=== PATIENT | female | born 1995 | race Two or more races ===

== ENCOUNTER 2019-01-19 13:50 | Inpatient (IN) | payer OTHER ==
[~2019-01-19] VITALS: Ht 170.2 cm; Wt 79.8 kg
[2019-02-17] MEDS ORDERED: PRENATAL 19 TA1 EAC1 PO (09:40)
[2019-02-19] MEDS ORDERED: Dermoplast SPRAY TOP (15:21)
[2019-02-19] MEDS ORDERED: PRENATAL 19 TA1 EAC1 PO (15:21)
[2019-02-19] MEDS ORDERED: HYDROCORTISO453.6 G1 RECTAL (15:21)
[2019-02-19] MEDS ORDERED: OXYC1TAB9 PO (15:21)
[2019-02-19] MEDS ORDERED: ACETAMINOPHEN325 M1 PO (15:21)
== END 2019-02-19 15:41 | disposition home or self-care (01) | DRG 807 ==
LOC: OB/GYN 01-25 14:30 → LDR 02-17 05:38 → OB/GYN 02-17 05:38
PROVIDERS: ADMIT Specialist
PROC: 10E0XZZ Delivery of Products of Conception, External Approach (ICD-10-PCS; principal; 2019-02-17)
PROC: 0HQ9XZZ Repair Perineum Skin, External Approach (ICD-10-PCS; 2019-02-17)
PROC: 3E033VJ Introduction of Other Hormone into Peripheral Vein, Percutaneous Approach (ICD-10-PCS; 2019-02-17)
PROC: 10907ZC Drainage of Amniotic Fluid, Therapeutic from Products of Conception, Via Natural or Artificial Opening (ICD-10-PCS; 2019-02-17)
PROC: 4A1HXCZ Monitoring of Products of Conception, Cardiac Rate, External Approach (ICD-10-PCS; 2019-02-17)
DX: O70.0 First degree perineal laceration during delivery (principal); Z37.0 Single live birth; Z3A.39 39 weeks gestation of pregnancy; Z22.330 Carrier of Group B streptococcus

== ENCOUNTER 2024-02-18 06:06 | Inpatient (IN) | payer OTHER ==
[~2024-02-18] VITALS: Ht 170.2 cm; Wt 75.7 kg
[~2024-02-18 06:06] MED LIST: ACETAMINOPHEN325 M1 PO; Dermoplast SPRAY TOP; HYDROCORTISO453.6 G1 RECTAL; OXYC1TAB9 PO; PRENATAL 19 TA1 EAC1 PO
[2024-02-18] MEDS ORDERED: AMPICILLIN SODIUM 2,000 MG VIAL IV STA (06:08)
[2024-02-18] MEDS ORDERED: AMPICILLIN SODIUM 2,000 MG VIAL ONE (06:12)
[2024-02-18] MEDS ORDERED: RINGERS SOLUTION,LACTATED 1,000 ML IV SCH (06:15)
[2024-02-18] MEDS ORDERED: OXYTOCIN 500 ML IV SCH (06:45)
[2024-02-18] MEDS ORDERED: OXYTOCIN 20 UNITS/500ML RL PIGGYBAG IV ONE (06:46)
[2024-02-18] MEDS ORDERED: PRENATAL TABLE1 EAC1 PO (07:11)
[2024-02-18 08:04] LABS: PH,URINE 6.5 (5.0-8.0); URINE APPEARANCE Clear; URINE BILIRRUBIN Negative (NEGATIVE); URINE BLOOD Negative; URINE COLOR Yellow; URINE GLUCOSE Negative (NEGATIVE); URINE KETONE Negative (NEGATIVE); URINE LEUKOCYTE Large; URINE NITRATE Negative; URINE PROTEIN Negative (NEGATIVE); URINE UROBILINOGEN 0.2 E.U./dl
[2024-02-18 08:08] LABS: URINE BACTERIA 1075.9 uL (0.0-1933); URINE EPITHELIAL CELLS 13.6 uL (0.0-38.8); URINE WBC 189.4 uL (0.0-23.2)
[2024-02-18 08:10] LABS: URINE CAST 0.15 uL (0.0-1.40); URINE RBC 0.9 uL (0.0-20.8)
[2024-02-18 08:15] LABS: HEMATOCRIT 31.5 % (36.0-45.00); HEMOGLOBIN 10.1 g/dL (12.0-15.00); MEAN CORPUSCULAR HEMOGLOBIN 21.9 pg (27.00-32.0); MEAN CORPUSCULAR HGB CONC 31.9 g/dl (32.0-36.0); PLATELET COUNT 247 K/uL (150-450); RED BLOOD COUNT 4.59 M/uL (4.00-6.00)
[2024-02-18 08:18] LABS: MEAN CELL VOLUME 68.6 fL (80.00-100.00); RED CELL DISTRIBUTION WIDTH 17.8 % (11.5-14.5)
[2024-02-18 08:47] LABS: INR 0.94; PARTIAL THROMBOPLASTIN TIME 23.6 SECONDS (22.0-34.0); PROTHROMBIN TIME 10.3 SECONDS (9.0-11.5)
[2024-02-18 08:48] LABS: ALBUMIN 2.7 gm/dL (3.4-5.0); BILIRUBIN TOTAL 0.46 mg/dL (0.3-1.2); CALCIUM 9.1 mg/dL (8.5-10.1); CREATININE SERUM 0.52 mg/dL (0.55-1.02); GFR 141.45; GLOBULINA 4.1 G/DL (2.4-3.5); POTASSIUM 3.83 mEq/L (3.5-5.1); TOTAL PROTEIN 6.8 gm/dL (6.4-8.2)
[2024-02-18] MEDS ORDERED: AMPICILLIN SODIUM 1,000 MG VIAL IV SCH (12:00)
[2024-02-18] MEDS ORDERED: CHLORHEXIDINE GLUCONATE 120 ML BOTTLE TOP ONE ×2 (12:46→14:15)
[2024-02-18] MEDS ORDERED: OXYTOCIN 20 UNITS/1000ML RL PIGGYBAG IV ONE ×2 (12:46→14:15)
[2024-02-18] MEDS ORDERED: LIDOCAINE HCL 1% 10ML VIAL ONE (12:46)
[2024-02-18] MEDS ORDERED: ERYTHROMYCIN BASE 1 GM TUBE OP ONE ×2 (12:46→14:15)
[2024-02-18] MEDS ORDERED: CARBOPROST TROMETHAMINE 250 MCG/ML AMPUL IM ONE (13:32)
[2024-02-18] MEDS ORDERED: METHYLERGONOVINE MALEATE 0.2 MG/ML AMPUL ONE (13:32)
[2024-02-18] MEDS ORDERED: OxyCODONE HCL/APAP UD (PERCOCET) PO PRN (14:15)
[2024-02-18] MEDS ORDERED: ACETAMINOPHEN 325 MG TABLET PO PRN (14:15)
[2024-02-18] MEDS ORDERED: LIDOCAINE HCL 1% 2ML VIAL IJ ONE (14:15)
[2024-02-18] MEDS ORDERED: CARBOPROST TROMETHAMINE 250 MCG/ML AMPUL IM STA (14:45)
[2024-02-18] MEDS ORDERED: METHYLERGONOVINE MALEATE 0.2 MG/ML AMPUL IM STA (14:45)
[2024-02-18] MEDS ORDERED: BENZOCAINE/MENTHOL 90 ML BOTTLE TOP SCH (17:00)
[2024-02-18] MEDS ORDERED: HYDROCORTISONE 2.5% 30 GM TUBE RECTAL SCH (17:00)
[2024-02-19 01:45] LABS: HEMATOCRIT 28.5 % (36.0-45.00); MEAN CELL VOLUME 70.1 fL (80.00-100.00); MEAN CORPUSCULAR HEMOGLOBIN 21.6 pg (27.00-32.0); MEAN CORPUSCULAR HGB CONC 30.8 g/dl (32.0-36.0); PLATELET COUNT 225 K/uL (150-450); RED BLOOD COUNT 4.07 M/uL (4.00-6.00); RED CELL DISTRIBUTION WIDTH 17.4 % (11.5-14.5)
[2024-02-19 01:46] LABS: HEMOGLOBIN 8.8 g/dL (12.0-15.00)
[2024-02-19] MEDS ORDERED: SOD FERRIC GLUC COMPLX/SUCROSE 62.5 MG in 0.9 % SODIUM CHLORIDE 50 ML IV SCH (09:00)
== END 2024-02-20 17:25 | disposition home or self-care (01) | DRG 807 ==
LOC: LDR 06:06 → OB/GYN 06:06
PROVIDERS: ADMIT Specialist; ATTEND Specialist
PROC: 10E0XZZ Delivery of Products of Conception, External Approach (ICD-10-PCS; principal; 2024-02-18)
PROC: 0HQ9XZZ Repair Perineum Skin, External Approach (ICD-10-PCS; 2024-02-18)
PROC: 4A1HXCZ Monitoring of Products of Conception, Cardiac Rate, External Approach (ICD-10-PCS; 2024-02-18)
DX: O70.0 First degree perineal laceration during delivery (principal); Z37.0 Single live birth; O99.824 Streptococcus B carrier state complicating childbirth; Z3A.39 39 weeks gestation of pregnancy; Z20.822 Contact with and (suspected) exposure to COVID-19